=== PATIENT | female | born 1960 | race Caucasian/White ===

== ENCOUNTER 2017-03-12 18:50 | Emergency (ER) | payer SELFPAY ==
[~2017-03-12] VITALS: Ht 152.4 cm; Wt 69.0 kg
[2017-03-12 21:00] LABS: BASOPHILS % 0.9 % (0.0-2.0); EOSINOPHILS % 4.3 % (0.0-5.0); HEMATOCRIT. 28.8 % (36.0-48.0); HEMOGLOBIN. 9.3 g/dL (12.0-16.0); LYMPHOCYTES % 25.8 % (20.0-50.0); MEAN CORPUSCULAR HEMOGLOBIN 23.8 pg (28.0-32.0); MEAN CORPUSCULAR VOLUME 74.2 fL (81.0-99.0); MEAN PLATELET VOLUME 8.6 fl (7.4-10.4); MONOCYTES % 8.2 % (2.0-8.0); NEUTROPHILS % 60.8 % (40.0-76.0); PLATELET 232 x1000/uL (130-400); RED BLOOD CELL COUNT 3.88 mill/uL (4.2-5.4); RED CELL DISTRIBUTION WIDTH 13.3 % (11.6-14.6)
[2017-03-12 21:03] LABS: CHLORIDE 106 mEq/L (98-107)
[2017-03-12 21:05] LABS: PROTHROMBIN TIME 10.3 sec
[2017-03-12 21:09] LABS: CARBON DIOXIDE 26 mEq/L (21-32)
[2017-03-12 22:55] LABS: CLARITY URINE CLEAR (CLEAR); COLOR URINE YELLOW (YELLOW); GLUCOSE URINE NEGATIVE (NEGATIVE); KETONES URINE NEGATIVE (NEGATIVE); LEUKOCYTE ESTERASE URINE 3+ (NEGATIVE); NITRITE URINE NEGATIVE (NEGATIVE); OCCULT BLOOD URINE NEGATIVE (NEGATIVE); PROTEIN URINE NEGATIVE (NEGATIVE); SPECIFIC GRAVITY URINE 1.009 (1.005-1.030); UROBILINOGEN URINE 0.2 E.U./dL (0.2-1.0)
[2017-03-12] MEDS ORDERED: KETOROLAC 60MG/2ML VIAL IM ONE (23:30)
[2017-03-12] MEDS ORDERED: CEPHALEXIN 500MG CAPSULE PO ONE (23:30)
[2017-03-13 01:35] VITALS: BP 118/71
== END 2017-03-13 01:51 | disposition home or self-care (01) ==
LOC: ER 20:59
DX: N10 Acute pyelonephritis (principal)
CPT/HCPCS: 36415; 74176; 80053; 81001; 85025; 85610; 96372; 99285; J1885; J7030; Z7610

== ENCOUNTER 2018-01-20 15:28 | Emergency (ER) | payer MEDICAID ==
[~2018-01-20] VITALS: Ht 144.8 cm; Wt 69.4 kg
[2018-01-20 16:19] LABS: CLARITY URINE CLEAR (CLEAR); COLOR URINE YELLOW (YELLOW); KETONES URINE NEGATIVE (NEGATIVE); LEUKOCYTE ESTERASE URINE 2+ (NEGATIVE); NITRITE URINE NEGATIVE (NEGATIVE); OCCULT BLOOD URINE NEGATIVE (NEGATIVE); PROTEIN URINE NEGATIVE (NEGATIVE); SPECIFIC GRAVITY URINE 1.004 (1.005-1.030); UROBILINOGEN URINE 0.2 E.U./dL (0.2-1.0)
[2018-01-20 16:21] LABS: CHLORIDE 97 mEq/L (98-107)
[2018-01-20 16:24] LABS: PROTHROMBIN TIME 10.6 sec (9.4-11.6)
[2018-01-20 17:13] LABS: BASOPHILS % 0.5 % (0.0-2.0); EOSINOPHILS % 1.6 % (0.0-5.0); HEMATOCRIT. 30.5 % (36.0-48.0); HEMOGLOBIN. 9.9 g/dL (12.0-16.0); LYMPHOCYTES % 28.4 % (20.0-50.0); MEAN CORPUSCULAR HEMOGLOBIN 23.8 pg (28.0-32.0); MEAN CORPUSCULAR VOLUME 73.5 fL (81.0-99.0); MEAN PLATELET VOLUME 8.6 fl (7.4-10.4); MONOCYTES % 11.5 % (2.0-8.0); PLATELET 236 x1000/uL (130-400); RED BLOOD CELL COUNT 4.15 mill/uL (4.2-5.4); RED CELL DISTRIBUTION WIDTH 13.7 % (11.6-14.6)
[2018-01-20] MEDS ORDERED: MORPHINE SULFATE 4 MG/ML CPJ (NOT FOR IM USE) IV STA (17:40)
[2018-01-20] MEDS ORDERED: SODIUM CHLORIDE 0.9% 1,000 ML IV ONE (17:40)
[2018-01-20] MEDS ORDERED: ONDANSETRON HCL 4MG/2ML VIAL IV STA (17:40)
[2018-01-20] MEDS ORDERED: CEFTRIAXONE 1 G PREMIX 50 ML IV ONE (17:45)
[2018-01-20 20:46] VITALS: BP 135/69
== END 2018-01-20 20:47 | disposition home or self-care (01) ==
LOC: ER 15:56
DX: N39.0 Urinary tract infection, site not specified (principal); E87.1 Hypo-osmolality and hyponatremia; D64.9 Anemia, unspecified; I10 Essential (primary) hypertension; R73.03 Prediabetes; Z90.49 Acquired absence of other specified parts of digestive tract
CPT/HCPCS: 36415; 71045; 74176; 76705; 80053; 81003; 81025; 83690; 85025; 85610; 96361; 96365; 96375; 99285; J0696; J2270; J2405; J7030; Z7610

== ENCOUNTER 2018-04-11 16:00 | Emergency (ER) | payer MEDICAID ==
[~2018-04-11] VITALS: Ht 167.6 cm; Wt 68.0 kg
[2018-04-11 16:18] VITALS: BP 188/95
== END 2018-04-11 19:30 | disposition left against medical advice (07) ==
LOC: ER 16:00
DX: Z53.21 Procedure and treatment not carried out due to patient leaving prior to being seen by health care provider (principal)

== ENCOUNTER 2018-04-15 17:32 | Emergency (ER) | payer MEDICAID ==
[~2018-04-15] VITALS: Ht 157.5 cm; Wt 68.1 kg
[2018-04-15 19:21] LABS: CLARITY URINE CLEAR (CLEAR); COLOR URINE YELLOW (YELLOW); KETONES URINE NEGATIVE (NEGATIVE); LEUKOCYTE ESTERASE URINE 1+ (NEGATIVE); NITRITE URINE NEGATIVE (NEGATIVE); OCCULT BLOOD URINE NEGATIVE (NEGATIVE); PROTEIN URINE NEGATIVE (NEGATIVE); SPECIFIC GRAVITY URINE 1.006 (1.005-1.030); UROBILINOGEN URINE 0.2 E.U./dL (0.2-1.0)
[2018-04-15 19:30] LABS: EOSINOPHILS % 4.1 % (0.0-5.0); HEMATOCRIT. 32.9 % (36.0-48.0); HEMOGLOBIN. 10.5 g/dL (12.0-16.0); LYMPHOCYTES % 25.2 % (20.0-50.0); MEAN CORPUSCULAR HEMOGLOBIN 24.4 pg (28.0-32.0); MEAN CORPUSCULAR VOLUME 76.3 fL (81.0-99.0); MEAN PLATELET VOLUME 9.2 fl (7.4-10.4); MONOCYTES % 8.9 % (2.0-8.0); NEUTROPHILS % 60.8 % (40.0-76.0); PLATELET 279 x1000/uL (130-400); RED BLOOD CELL COUNT 4.31 mill/uL (4.2-5.4); RED CELL DISTRIBUTION WIDTH 13.7 % (11.6-14.6)
[2018-04-15 19:31] LABS: CHLORIDE 104 mEq/L (98-107)
[2018-04-15 20:35] LABS: PROTHROMBIN TIME 9.8 sec (9.1-11.1)
[2018-04-15] MEDS ORDERED: ACETAMINOPHEN 325MG TABLET PO ONE (23:15)
[2018-04-16 00:38] VITALS: BP 129/63
== END 2018-04-16 00:39 | disposition home or self-care (01) ==
LOC: ER 20:03
DX: N39.0 Urinary tract infection, site not specified (principal); I10 Essential (primary) hypertension; Z90.49 Acquired absence of other specified parts of digestive tract; Z90.710 Acquired absence of both cervix and uterus
CPT/HCPCS: 36415; 80053; 81003; 83690; 85025; 85610; 99284; Z7610

== ENCOUNTER 2018-04-19 23:40 | Emergency (ER) | payer MEDICAID ==
[~2018-04-19] VITALS: Ht 152.4 cm; Wt 59.0 kg
[2018-04-20] MEDS ORDERED: ONDANSETRON HCL 4MG/2ML INJ IV STA (03:14)
[2018-04-20] MEDS ORDERED: MORPHINE SULFATE 4 MG/ML CPJ (NOT FOR IM USE) IV STA (03:14)
[2018-04-20] MEDS ORDERED: SODIUM CHLORIDE 0.9% 1,000 ML IV ONE (03:14)
[2018-04-20 04:21] LABS: BASOPHILS % 1.5 % (0.0-2.0); EOSINOPHILS % 5.4 % (0.0-5.0); HEMATOCRIT. 32.5 % (36.0-48.0); HEMOGLOBIN. 10.3 g/dL (12.0-16.0); LYMPHOCYTES % 32.3 % (20.0-50.0); MEAN CORPUSCULAR HEMOGLOBIN 24.2 pg (28.0-32.0); MEAN CORPUSCULAR VOLUME 76.2 fL (81.0-99.0); MEAN PLATELET VOLUME 8.9 fl (7.4-10.4); MONOCYTES % 9.3 % (2.0-8.0); NEUTROPHILS % 51.5 % (40.0-76.0); PLATELET 255 x1000/uL (130-400); RED BLOOD CELL COUNT 4.26 mill/uL (4.2-5.4); RED CELL DISTRIBUTION WIDTH 13.3 % (11.6-14.6)
[2018-04-20 04:26] LABS: CHLORIDE 104 mEq/L (98-107)
[2018-04-20 04:33] LABS: CLARITY URINE CLEAR (CLEAR); COLOR URINE YELLOW (YELLOW); KETONES URINE NEGATIVE (NEGATIVE); LEUKOCYTE ESTERASE URINE TRACE (NEGATIVE); NITRITE URINE NEGATIVE (NEGATIVE); OCCULT BLOOD URINE NEGATIVE (NEGATIVE); PH URINE 6.5 (4.5-8.0); PROTEIN URINE NEGATIVE (NEGATIVE); SPECIFIC GRAVITY URINE 1.005 (1.005-1.030); UROBILINOGEN URINE 0.2 E.U./dL (0.2-1.0)
[2018-04-20] MEDS ORDERED: KETOROLAC 30MG/ML VIAL IV ONE (05:30)
[2018-04-20 08:38] VITALS: BP 159/86
== END 2018-04-20 08:41 | disposition home or self-care (01) ==
LOC: ER 23:40
DX: R10.84 Generalized abdominal pain (principal); R93.8 Abnormal findings on diagnostic imaging of other specified body structures; Z90.49 Acquired absence of other specified parts of digestive tract
CPT/HCPCS: 36415; 74176; 80053; 81003; 83605; 85025; 96374; 96375; 99285; J1885; J2270; J2405; J7030

== ENCOUNTER 2018-05-05 10:55 | Emergency (ER) | payer MEDICAID ==
[~2018-05-05] VITALS: Ht 157.5 cm; Wt 73.0 kg
[2018-05-05 12:03] LABS: CLARITY URINE CLEAR (CLEAR); COLOR URINE YELLOW (YELLOW); KETONES URINE NEGATIVE (NEGATIVE); LEUKOCYTE ESTERASE URINE TRACE (NEGATIVE); NITRITE URINE NEGATIVE (NEGATIVE); OCCULT BLOOD URINE NEGATIVE (NEGATIVE); PROTEIN URINE NEGATIVE (NEGATIVE); SPECIFIC GRAVITY URINE 1.005 (1.005-1.030); UROBILINOGEN URINE 0.2 E.U./dL (0.2-1.0)
[2018-05-05] MEDS ORDERED: ONDANSETRON HCL 4MG/2ML INJ IV STA (12:03)
[2018-05-05] MEDS ORDERED: MORPHINE SULFATE 4 MG/ML CPJ (NOT FOR IM USE) IV STA (12:03)
[2018-05-05 12:04] LABS: CHLORIDE 104 mEq/L (98-107)
[2018-05-05 12:05] LABS: BASOPHILS % 1.9 % (0.0-2.0); EOSINOPHILS % 4.1 % (0.0-5.0); HEMATOCRIT. 33.3 % (36.0-48.0); HEMOGLOBIN. 10.6 g/dL (12.0-16.0); MEAN CORPUSCULAR HEMOGLOBIN 24.1 pg (28.0-32.0); MEAN CORPUSCULAR VOLUME 75.9 fL (81.0-99.0); MEAN PLATELET VOLUME 9.6 fl (7.4-10.4); PLATELET 275 x1000/uL (130-400); RED BLOOD CELL COUNT 4.39 mill/uL (4.2-5.4); RED CELL DISTRIBUTION WIDTH 13.4 % (11.6-14.6)
[2018-05-05 13:25] VITALS: BP 131/73
== END 2018-05-05 13:37 | disposition home or self-care (01) ==
LOC: ER 10:55
DX: R10.13 Epigastric pain (principal); R03.0 Elevated blood-pressure reading, without diagnosis of hypertension; Z90.49 Acquired absence of other specified parts of digestive tract; Z90.710 Acquired absence of both cervix and uterus
CPT/HCPCS: 36415; 74176; 80053; 81003; 83690; 84484; 85025; 85610; 93005; 96374; 96375; 99285; J2270; J2405; J7030

== ENCOUNTER 2018-05-22 16:16 | Inpatient (IN) | payer MEDICAID, OTHER ==
[~2018-05-22] VITALS: Ht 165.1 cm; Wt 64.9 kg
[2018-05-22 17:07] LABS: BASOPHILS % 1.1 % (0.0-2.0); EOSINOPHILS % 5.2 % (0.0-5.0); HEMATOCRIT. 29.6 % (36.0-48.0); HEMOGLOBIN. 9.5 g/dL (12.0-16.0); LYMPHOCYTES % 27.3 % (20.0-50.0); MEAN CORPUSCULAR HEMOGLOBIN 24.3 pg (28.0-32.0); MEAN PLATELET VOLUME 8.8 fl (7.4-10.4); MONOCYTES % 9.4 % (2.0-8.0); PLATELET 241 x1000/uL (130-400); RED BLOOD CELL COUNT 3.89 mill/uL (4.2-5.4); RED CELL DISTRIBUTION WIDTH 13.4 % (11.6-14.6)
[2018-05-22 17:16] LABS: CHLORIDE 101 mEq/L (98-107)
[2018-05-22 17:21] LABS: ETHANOL BLOOD < 10 mg/dL; LDL CHOLESTEROL 119 mg/dL (5-100)
[2018-05-22 17:22] LABS: CREATINE KINASE 98 IU/L (26-192)
[2018-05-22] MEDS ORDERED: MAGNESIUM 2 G PREMIX 50 ML IV ONE (17:30)
[2018-05-22] MEDS ORDERED: IOHEXOL-350 100 ML BOTTLE ONE (17:49)
[2018-05-22] MEDS ORDERED: ASPIRIN 81MG TABLET PO ONE (18:00)
[2018-05-22] MEDS: SODIUM CHLORIDE 0.45% 1,000 ML IV SCH (21:12)
[2018-05-22] MEDS ORDERED: HYDROMORPHONE HCL/PF 2MG/ML CPJ IV PRN (21:15)
[2018-05-22] MEDS ORDERED: MAGNESIUM/ALUMINUM HYDROXIDE/SIMETHICONE 30ML UDC PO PRN (21:15)
[2018-05-22] MEDS ORDERED: ONDANSETRON HCL 4MG/2ML INJ IV PRN (21:15)
[2018-05-22] MEDS ORDERED: HYDROCODONE/ACETAMINOPHEN 5/325MG TABLET PO PRN (21:15)
[2018-05-22] MEDS ORDERED: GUAIFENESIN 200MG/10ML SUGAR FREE UDC PO PRN (21:15)
[2018-05-22] MEDS ORDERED: LORAZEPAM 2MG/ML CPJ IV PRN (21:15)
[2018-05-22] MEDS ORDERED: CLONIDINE 0.1MG TABLET PO PRN (21:15)
[2018-05-22] MEDS ORDERED: IPRATROPIUM/ALBUTEROL 0.5-3(2.5)MG/3ML NEB INH PRN (21:15)
[2018-05-22] MEDS ORDERED: ACETAMINOPHEN 325MG TABLET PO PRN (21:15)
[2018-05-22] MEDS ORDERED: DIPHENHYDRAMINE 50MG/ML VIAL IV PRN (21:15)
[2018-05-22] MEDS ORDERED: DOCUSATE SODIUM 100MG CAPSULE PO PRN (21:15)
[2018-05-22] MEDS ORDERED: NA PHOS,M-B/NA PHOS,DI-BA ENEMA 118ML PR PRN (21:15)
[2018-05-23 04:00] VITALS: BP 99/60
[2018-05-23] MEDS ORDERED: HYDROMORPHONE HCL/PF 2MG/ML CPJ IV PRN (04:00)
[2018-05-23 08:00] VITALS: BP 146/68
[2018-05-23] MEDS ORDERED: ENOXAPARIN 40MG/0.4ML SYR SUBCUT SCH (09:00)
[2018-05-23] MEDS ORDERED: ASPIRIN 81MG EC TABLET PO SCH (09:00)
[2018-05-23] MEDS: ASPIRIN 81MG EC TABLET PO SCH (09:48)
[2018-05-23] MEDS: ENOXAPARIN 40MG/0.4ML SYR SUBCUT SCH (09:51)
[2018-05-23 12:00] VITALS: BP 156/76
[2018-05-23 16:00] VITALS: BP 149/72
[2018-05-23] MEDS: SODIUM CHLORIDE 0.45% 1,000 ML IV SCH (17:12)
[2018-05-23 18:15] LABS: CREATINE KINASE 80 IU/L (26-192); CREATINE KINASE MB FRACTION < 1.0 ng/mL (0.5-3.6)
[2018-05-23 18:20] LABS: T4 FREE 1.09 ng/dL (0.76-1.46)
[2018-05-23 20:00] VITALS: BP 162/85
[2018-05-24 00:40] VITALS: BP 132/76
[2018-05-24 01:02] LABS: CREATINE KINASE 64 IU/L (26-192); CREATINE KINASE MB FRACTION < 1.0 ng/mL (0.5-3.6)
[2018-05-24 04:00] VITALS: BP 143/79
[2018-05-24 07:26] LABS: CREATINE KINASE 60 IU/L (26-192); CREATINE KINASE MB FRACTION < 1.0 ng/mL (0.5-3.6)
[2018-05-24 08:00] VITALS: BP 140/70
[2018-05-24 08:30] VITALS: BP 140/70
[2018-05-24] MEDS: ENOXAPARIN 40MG/0.4ML SYR SUBCUT SCH (10:11)
[2018-05-24] MEDS: ASPIRIN 81MG EC TABLET PO SCH (10:12)
== END 2018-05-24 12:24 | disposition home or self-care (01) | DRG 52 ==
LOC: ER 16:16 → 7WST 17:53 → UNDOADMIN 05-23 00:27 → 7WST 05-23 00:27 → ENRESERV 05-23 02:43 → ER 05-23 03:56
PROVIDERS: ADMIT Internal Medicine; ATTEND Internal Medicine
DX: G93.41 Metabolic encephalopathy (principal); N17.0 Acute kidney failure with tubular necrosis; E86.0 Dehydration; G45.9 Transient cerebral ischemic attack, unspecified; D64.9 Anemia, unspecified; I10 Essential (primary) hypertension; R20.2 Paresthesia of skin; E78.5 Hyperlipidemia, unspecified; Z90.710 Acquired absence of both cervix and uterus; Z90.49 Acquired absence of other specified parts of digestive tract; Z91.19 Patient's noncompliance with other medical treatment and regimen
CPT/HCPCS: 36415; 70496; 71045; 80061; 82550; 82553; 82962; 83036; 83721; 83735; 83880; 84439; 84443; 84484; 85379; 93005; 93306; 93880; 96365; 99285; G0482; J1170; J1650; J2405; J3475; J7030; Q9967

== ENCOUNTER 2018-08-20 10:49 | Inpatient (IN) | payer MEDICAID, OTHER ==
[~2018-08-20] VITALS: Ht 152.4 cm; Wt 68.0 kg
[2018-08-20] MEDS ORDERED: ONDANSETRON HCL 4MG/2ML INJ IV STA (12:45)
[2018-08-20] MEDS ORDERED: KETOROLAC 30MG/ML VIAL IV STA (12:45)
[2018-08-20 13:15] LABS: CLARITY URINE CLEAR (CLEAR); COLOR URINE YELLOW (YELLOW); KETONES URINE NEGATIVE (NEGATIVE); LEUKOCYTE ESTERASE URINE TRACE (NEGATIVE); NITRITE URINE NEGATIVE (NEGATIVE); OCCULT BLOOD URINE NEGATIVE (NEGATIVE); PROTEIN URINE NEGATIVE (NEGATIVE); SPECIFIC GRAVITY URINE 1.009 (1.005-1.030); UROBILINOGEN URINE 0.2 E.U./dL (0.2-1.0)
[2018-08-20 15:01] LABS: BASOPHILS % 1.1 % (0.0-2.0); EOSINOPHILS % 3.5 % (0.0-5.0); HEMATOCRIT. 34.2 % (36.0-48.0); HEMOGLOBIN. 10.9 g/dL (12.0-16.0); LYMPHOCYTES % 27.1 % (20.0-50.0); MEAN CORPUSCULAR HEMOGLOBIN 24.1 pg (28.0-32.0); MEAN CORPUSCULAR VOLUME 75.6 fL (81.0-99.0); MONOCYTES % 7.1 % (2.0-8.0); NEUTROPHILS % 61.2 % (40.0-76.0); PLATELET 283 x1000/uL (130-400); RED BLOOD CELL COUNT 4.52 mill/uL (4.2-5.4); RED CELL DISTRIBUTION WIDTH 13.3 % (11.6-14.6)
[2018-08-20 15:06] LABS: CHLORIDE 106 mEq/L (98-107)
[2018-08-20] MEDS ORDERED: CEFTRIAXONE 1 G PREMIX 50 ML IV ONE (15:45)
[2018-08-20] MEDS ORDERED: MORPHINE SULFATE 4 MG/ML CPJ (NOT FOR IM USE) IV ONE (15:45)
[2018-08-20 21:00] VITALS: BP 163/69
[2018-08-20 21:05] VITALS: BP 163/69
[2018-08-20] MEDS ORDERED: ENOXAPARIN 40MG/0.4ML SYR SUBCUT SCH (23:30)
[2018-08-20] MEDS ORDERED: ONDANSETRON HCL 4MG/2ML INJ IV PRN (23:30)
[2018-08-20] MEDS ORDERED: HYDROCODONE/ACETAMINOPHEN 5/325MG TABLET PO PRN (23:30)
[2018-08-20] MEDS ORDERED: DOCUSATE SODIUM 100MG CAPSULE PO PRN (23:30)
[2018-08-20] MEDS ORDERED: GUAIFENESIN 200MG/10ML SUGAR FREE UDC PO PRN (23:30)
[2018-08-21] VITALS: BP 112/59
[2018-08-21 04:00] VITALS: BP 120/60
[2018-08-21] MEDS: SODIUM CHLORIDE 0.9% 1,000 ML IV SCH ×2 (07:29)
[2018-08-21 07:33] LABS: BASOPHILS % 1.3 % (0.0-2.0); EOSINOPHILS % 8.4 % (0.0-5.0); HEMATOCRIT. 33.4 % (36.0-48.0); HEMOGLOBIN. 10.5 g/dL (12.0-16.0); LYMPHOCYTES % 19.5 % (20.0-50.0); MEAN CORPUSCULAR HEMOGLOBIN 24.2 pg (28.0-32.0); MEAN PLATELET VOLUME 9.2 fl (7.4-10.4); MONOCYTES % 10.5 % (2.0-8.0); NEUTROPHILS % 60.3 % (40.0-76.0); PLATELET 257 x1000/uL (130-400); RED BLOOD CELL COUNT 4.34 mill/uL (4.2-5.4); RED CELL DISTRIBUTION WIDTH 13.3 % (11.6-14.6)
[2018-08-21 07:59] LABS: CHLORIDE 110 mEq/L (98-107)
[2018-08-21 08:00] VITALS: BP 116/60
[2018-08-21 08:07] LABS: LDL CHOLESTEROL 161 mg/dL (5-100)
[2018-08-21 08:08] LABS: HDL CHOLESTEROL 38 mg/dL (40-59)
[2018-08-21 12:00] VITALS: BP 105/62
[2018-08-21] MEDS ORDERED: ATOR10TA MT (12:26)
[2018-08-21 12:56] VITALS: BP 116/60
[2018-08-21 14:25] LABS: *AMPHETAMINES SCREEN URINE NEGATIVE (NEGATIVE)
[2018-08-21 14:26] LABS: *BARBITURATES SCREEN URINE NEGATIVE (NEGATIVE); *BENZODIAZEPINES SCREEN URINE NEGATIVE (NEGATIVE); *COCAINE SCREEN URINE NEGATIVE (NEGATIVE); CANNABINOID URINE SCREEN NEGATIVE (NEGATIVE); METHADONE URINE SCREEN NEGATIVE (NEGATIVE); OPIATES URINE SCREEN NEGATIVE (NEGATIVE); PHENCYCLIDINE URINE SCREEN NEGATIVE (NEGATIVE)
[2018-08-21 15:45] LABS: CLARITY URINE CLEAR (CLEAR); COLOR URINE YELLOW (YELLOW); KETONES URINE NEGATIVE (NEGATIVE); LEUKOCYTE ESTERASE URINE TRACE (NEGATIVE); NITRITE URINE NEGATIVE (NEGATIVE); OCCULT BLOOD URINE NEGATIVE (NEGATIVE); PROTEIN URINE NEGATIVE (NEGATIVE); SPECIFIC GRAVITY URINE 1.013 (1.005-1.030); UROBILINOGEN URINE 0.2 E.U./dL (0.2-1.0)
[2018-08-21] MEDS ORDERED: ATORVASTATIN CALCIUM 10MG TABLET PO SCH (21:00)
== END 2018-08-21 14:05 | disposition home or self-care (01) | DRG 463 ==
LOC: ER 14:16 → 5WST 15:42 → EDBEDREQ 15:44 → ENRESERV 20:28
PROVIDERS: ADMIT Family Medicine; ATTEND Family Medicine
DX: N39.0 Urinary tract infection, site not specified (principal); K85.90 Acute pancreatitis without necrosis or infection, unspecified; Z90.49 Acquired absence of other specified parts of digestive tract; E86.0 Dehydration; Z79.899 Other long term (current) drug therapy
CPT/HCPCS: 36415; 76705; 80061; 80305; 96365; 96375; 99285; J0696; J1650; J1885; J2270; J2405; J7030

== ENCOUNTER 2018-09-13 23:45 | Inpatient (IN) | payer MEDICAID, OTHER ==
[~2018-09-13] VITALS: Ht 142.2 cm; Wt 64.4 kg
[~2018-09-13 23:45] MED LIST: ATOR10TA MT
[2018-09-14] MEDS ORDERED: SODIUM CHLORIDE 0.9% 1,000 ML IV ONE (01:18)
[2018-09-14] MEDS ORDERED: KETOROLAC 30MG/ML VIAL IV STA (01:18)
[2018-09-14 01:31] LABS: CHLORIDE 103 mEq/L (98-107)
[2018-09-14 01:36] LABS: BASOPHILS % 1.4 % (0.0-2.0); EOSINOPHILS % 4.2 % (0.0-5.0); HEMATOCRIT. 34.3 % (36.0-48.0); HEMOGLOBIN. 10.8 g/dL (12.0-16.0); LYMPHOCYTES % 19.2 % (20.0-50.0); MEAN PLATELET VOLUME 9.2 fl (7.4-10.4); MONOCYTES % 13.2 % (2.0-8.0); PLATELET 240 x1000/uL (130-400); RED BLOOD CELL COUNT 4.51 mill/uL (4.2-5.4); RED CELL DISTRIBUTION WIDTH 13.5 % (11.6-14.6)
[2018-09-14] MEDS ORDERED: MORPHINE SULFATE 4 MG/ML CPJ (NOT FOR IM USE) IV ONE (02:15)
[2018-09-14] MEDS ORDERED: DEXTROSE 50% WATER 50ML SYRINGE IV PRN (11:00)
[2018-09-14] MEDS ORDERED: ONDANSETRON HCL 4MG/2ML INJ IV PRN (11:00)
[2018-09-14] MEDS ORDERED: MAGNESIUM/ALUMINUM HYDROXIDE/SIMETHICONE 30ML UDC PO PRN (11:00)
[2018-09-14] MEDS ORDERED: CLONIDINE 0.1MG TABLET PO PRN (11:00)
[2018-09-14] MEDS: KETOROLAC 30MG/ML VIAL IV PRN ×3 (13:40→21:24)
[2018-09-14] MEDS ORDERED: SODIUM CHLORIDE 0.9% INJ 3ML FLUSH IVF SCH (14:00)
[2018-09-14] MEDS ORDERED: ASPIRIN 81MG EC TABLET PO NR (15:15)
[2018-09-14] MEDS: ACETAMINOPHEN 325MG TABLET PO PRN (17:27)
[2018-09-14] MEDS: INSULIN LISPRO 100 UNITS/ML SUBCUT SCH (21:00)
[2018-09-14] MEDS: BLOOD SUGAR DIAGNOSTIC STRIP TEST SCH (21:00)
[2018-09-14] MEDS ORDERED: AMLODIPINE 5MG TABLET PO SCH (21:32)
[2018-09-14 21:49] VITALS: BP 156/76
[2018-09-14 21:54] VITALS: BP 156/76
[2018-09-14] MEDS ORDERED: SIMV20TA6 PO (22:08)
[2018-09-15] VITALS: BP 142/85
[2018-09-15] MEDS: ACETAMINOPHEN 325MG TABLET PO PRN ×2 (01:32→11:12)
[2018-09-15] MEDS: KETOROLAC 30MG/ML VIAL IV PRN ×2 (03:34→09:35)
[2018-09-15 04:00] VITALS: BP 147/87
[2018-09-15 06:47] LABS: BASOPHILS % 0.8 % (0.0-2.0); EOSINOPHILS % 3.6 % (0.0-5.0); HEMATOCRIT. 33.6 % (36.0-48.0); HEMOGLOBIN. 10.7 g/dL (12.0-16.0); LYMPHOCYTES % 17.1 % (20.0-50.0); MEAN CORPUSCULAR VOLUME 75.5 fL (81.0-99.0); MEAN PLATELET VOLUME 8.4 fl (7.4-10.4); MONOCYTES % 11.8 % (2.0-8.0); NEUTROPHILS % 66.7 % (40.0-76.0); PLATELET 197 x1000/uL (130-400); RED BLOOD CELL COUNT 4.45 mill/uL (4.2-5.4); RED CELL DISTRIBUTION WIDTH 13.1 % (11.6-14.6)
[2018-09-15 07:10] LABS: CHLORIDE 108 mEq/L (98-107)
[2018-09-15 07:17] LABS: LDL CHOLESTEROL 103 mg/dL (5-100)
[2018-09-15 07:19] LABS: HDL CHOLESTEROL 42 mg/dL (40-59)
[2018-09-15] MEDS: BLOOD SUGAR DIAGNOSTIC STRIP TEST SCH ×2 (07:43→13:18)
[2018-09-15] MEDS: INSULIN LISPRO 100 UNITS/ML SUBCUT SCH ×2 (07:43→13:10)
[2018-09-15 08:00] VITALS: BP 150/86
[2018-09-15] MEDS ORDERED: AMLODIPINE 5MG TABLET PO SCH (09:00)
[2018-09-15] MEDS ORDERED: ASPIRIN 81MG EC TABLET PO SCH (13:00)
[2018-09-15 14:30] VITALS: BP 137/74
[2018-09-15] MEDS ORDERED: ATORVASTATIN CALCIUM 10MG TABLET PO SCH (21:00)
== END 2018-09-15 16:20 | disposition home or self-care (01) | DRG 203 ==
LOC: ER 23:45 → 7WST 09-14 05:29 → EDBEDREQ 09-14 05:35 → ENRESERV 09-14 21:04
PROVIDERS: ADMIT Internal Medicine; ATTEND Internal Medicine
DX: M94.0 Chondrocostal junction syndrome [Tietze] (principal); E11.22 Type 2 diabetes mellitus with diabetic chronic kidney disease; I13.10 Hypertensive heart and chronic kidney disease without heart failure, with stage 1 through stage 4 chronic kidney disease, or unspecified chronic kidney disease; E78.00 Pure hypercholesterolemia, unspecified; N18.9 Chronic kidney disease, unspecified; Z90.49 Acquired absence of other specified parts of digestive tract
CPT/HCPCS: 36415; 71045; 78582; 80048; 80061; 82962; 83880; 84484; 85379; 93005; 93306; 96361; 96374; 96375; 96376; 99285; A9558; J1885; J2270; J7030

== ENCOUNTER 2018-09-26 16:16 | Inpatient (IN) | payer MEDICAID, OTHER ==
[~2018-09-26] VITALS: Ht 162.6 cm; Wt 59.0 kg
[~2018-09-26 16:16] MED LIST changes: +SIMV20TA6 PO
[2018-09-27 01:25] VITALS: BP 157/84
[2018-09-27] MEDS ORDERED: SODIUM CHLORIDE 0.9% 1,000 ML IV ONE (01:42)
[2018-09-27] MEDS ORDERED: ONDANSETRON HCL 4MG/2ML INJ IV STA (01:42)
[2018-09-27] MEDS ORDERED: MORPHINE SULFATE 4 MG/ML CPJ (NOT FOR IM USE) IV STA (01:42)
[2018-09-27 02:18] LABS: BASOPHILS % 1.1 % (0.0-2.0); EOSINOPHILS % 3.5 % (0.0-5.0); HEMATOCRIT. 34.8 % (36.0-48.0); LYMPHOCYTES % 30.5 % (20.0-50.0); MEAN CORPUSCULAR HEMOGLOBIN 23.8 pg (28.0-32.0); MEAN CORPUSCULAR VOLUME 75.6 fL (81.0-99.0); MEAN PLATELET VOLUME 8.5 fl (7.4-10.4); MONOCYTES % 10.8 % (2.0-8.0); NEUTROPHILS % 54.1 % (40.0-76.0); PLATELET 303 x1000/uL (130-400); RED BLOOD CELL COUNT 4.61 mill/uL (4.2-5.4); RED CELL DISTRIBUTION WIDTH 13.2 % (11.6-14.6)
[2018-09-27 02:24] LABS: CHLORIDE 103 mEq/L (98-107)
[2018-09-27 06:29] LABS: CLARITY URINE CLEAR (CLEAR); COLOR URINE YELLOW (YELLOW); KETONES URINE NEGATIVE (NEGATIVE); LEUKOCYTE ESTERASE URINE 3+ (NEGATIVE); NITRITE URINE NEGATIVE (NEGATIVE); OCCULT BLOOD URINE NEGATIVE (NEGATIVE); PROTEIN URINE NEGATIVE (NEGATIVE); SPECIFIC GRAVITY URINE 1.005 (1.005-1.030); UROBILINOGEN URINE 0.2 E.U./dL (0.2-1.0)
[2018-09-27] MEDS ORDERED: DIPHENHYDRAMINE 50MG/ML VIAL IV PRN (07:00)
[2018-09-27] MEDS ORDERED: MAGNESIUM/ALUMINUM HYDROXIDE/SIMETHICONE 30ML UDC PO PRN (07:00)
[2018-09-27] MEDS ORDERED: GUAIFENESIN 200MG/10ML SUGAR FREE UDC PO PRN (07:00)
[2018-09-27] MEDS ORDERED: CLONIDINE 0.1MG TABLET PO PRN (07:00)
[2018-09-27] MEDS ORDERED: IPRATROPIUM/ALBUTEROL 0.5-3(2.5)MG/3ML NEB INH PRN (07:00)
[2018-09-27] MEDS ORDERED: ONDANSETRON HCL 4MG/2ML INJ IV PRN (07:00)
[2018-09-27] MEDS ORDERED: LORAZEPAM 2MG/ML CPJ IV PRN (07:00)
[2018-09-27] MEDS ORDERED: ACETAMINOPHEN 325MG TABLET PO PRN (07:00)
[2018-09-27] MEDS ORDERED: DOCUSATE SODIUM 100MG CAPSULE PO PRN (07:00)
[2018-09-27 09:00] VITALS: BP 157/84
[2018-09-27] MEDS: HYDROCODONE/ACETAMINOPHEN 10/325MG TABLET PO PRN ×2 (10:37→23:28)
[2018-09-27] MEDS: ASPIRIN 81MG EC TABLET PO SCH (11:17)
[2018-09-27] MEDS: ENOXAPARIN 40MG/0.4ML SYR SUBCUT SCH (11:17)
[2018-09-27] MEDS ORDERED: ENAL20TA MT (11:28)
[2018-09-27 12:00] VITALS: BP 130/68
[2018-09-27] MEDS: SODIUM CHLORIDE 0.9% INJ 3ML FLUSH IVF SCH ×2 (14:50→20:57)
[2018-09-27] MEDS: SODIUM CHLORIDE 0.45% 1,000 ML IV SCH ×2 (14:53→23:26)
[2018-09-27] MEDS: HYDROMORPHONE HCL/PF 2MG/ML CPJ IV PRN ×2 (15:47→20:57)
[2018-09-27 16:00] VITALS: BP 149/85
[2018-09-27 20:00] VITALS: BP 147/86
[2018-09-28] VITALS: BP 166/97
[2018-09-28 04:00] VITALS: BP 156/89
[2018-09-28] MEDS: SODIUM CHLORIDE 0.45% 1,000 ML IV SCH ×2 (06:02→14:15)
[2018-09-28] MEDS: SODIUM CHLORIDE 0.9% INJ 3ML FLUSH IVF SCH ×2 (06:03→14:00)
[2018-09-28 07:01] LABS: EOSINOPHILS % 1.9 % (0.0-5.0); HEMOGLOBIN. 10.8 g/dL (12.0-16.0); LYMPHOCYTES % 21.2 % (20.0-50.0); MEAN CORPUSCULAR HEMOGLOBIN 24.1 pg (28.0-32.0); MEAN CORPUSCULAR VOLUME 76.2 fL (81.0-99.0); MEAN PLATELET VOLUME 8.7 fl (7.4-10.4); MONOCYTES % 8.3 % (2.0-8.0); NEUTROPHILS % 67.6 % (40.0-76.0); PLATELET 314 x1000/uL (130-400); RED BLOOD CELL COUNT 4.47 mill/uL (4.2-5.4)
[2018-09-28 07:14] LABS: CHLORIDE 101 mEq/L (98-107)
[2018-09-28 07:25] LABS: LDL CHOLESTEROL 98 mg/dL (5-100)
[2018-09-28 07:26] LABS: HDL CHOLESTEROL 44 mg/dL (40-59)
[2018-09-28 08:00] VITALS: BP 116/65
[2018-09-28] MEDS: ASPIRIN 81MG EC TABLET PO SCH (08:32)
[2018-09-28] MEDS: ENOXAPARIN 40MG/0.4ML SYR SUBCUT SCH (08:34)
[2018-09-28 12:00] VITALS: BP 127/77
[2018-09-28 13:18] VITALS: BP 122/77
== END 2018-09-28 14:48 | disposition home or self-care (01) | DRG 282 ==
LOC: ER 16:16 → 6EST 09-27 03:04 → EDBEDREQ 09-27 03:05 → EDBEDREQTM 09-27 03:05 → EDBEDREQSVC 09-27 03:05 → ENRESERV 09-27 07:09 → 6EST 09-27 09:21
PROVIDERS: ADMIT Internal Medicine; ATTEND Internal Medicine
DX: K85.90 Acute pancreatitis without necrosis or infection, unspecified (principal); N17.9 Acute kidney failure, unspecified; I12.9 Hypertensive chronic kidney disease with stage 1 through stage 4 chronic kidney disease, or unspecified chronic kidney disease; R07.89 Other chest pain; N18.9 Chronic kidney disease, unspecified; Z90.49 Acquired absence of other specified parts of digestive tract; Z90.710 Acquired absence of both cervix and uterus
CPT/HCPCS: 36415; 71045; 73030; 74176; 80061; 83605; 84484; 93005; 96361; 96374; 96375; 99285; J1170; J1650; J2270; J2405; J7030

== ENCOUNTER 2018-10-28 18:16 | Emergency (ER) | payer MEDICAID ==
[~2018-10-28] VITALS: Ht 152.4 cm; Wt 59.0 kg
[~2018-10-28 18:16] MED LIST changes: +ENAL20TA MT; -SIMV20TA6 PO
[2018-10-29] MEDS ORDERED: HYDROCODONE/ACETAMINOPHEN 5/325MG TABLET PO STA ×2 (02:03→07:08)
[2018-10-29] MEDS ORDERED: ONDANSETRON HCL 4MG/2ML INJ IV STA (02:51)
[2018-10-29 03:10] LABS: BASOPHILS % 0.9 % (0.0-2.0); EOSINOPHILS % 3.8 % (0.0-5.0); HEMATOCRIT. 32.5 % (36.0-48.0); HEMOGLOBIN. 10.5 g/dL (12.0-16.0); LYMPHOCYTES % 29.6 % (20.0-50.0); MEAN CORPUSCULAR HEMOGLOBIN 24.1 pg (28.0-32.0); MEAN PLATELET VOLUME 8.6 fl (7.4-10.4); NEUTROPHILS % 56.7 % (40.0-76.0); PLATELET 273 x1000/uL (130-400); RED BLOOD CELL COUNT 4.34 mill/uL (4.2-5.4); RED CELL DISTRIBUTION WIDTH 13.4 % (11.6-14.6)
[2018-10-29 03:18] LABS: CHLORIDE 104 mEq/L (98-107)
[2018-10-29 03:19] LABS: PROTHROMBIN TIME 10.1 sec (9.1-11.1)
[2018-10-29 07:36] LABS: CLARITY URINE CLEAR (CLEAR); COLOR URINE YELLOW (YELLOW); KETONES URINE NEGATIVE (NEGATIVE); LEUKOCYTE ESTERASE URINE 1+ (NEGATIVE); NITRITE URINE NEGATIVE (NEGATIVE); OCCULT BLOOD URINE NEGATIVE (NEGATIVE); PROTEIN URINE NEGATIVE (NEGATIVE); UROBILINOGEN URINE 0.2 E.U./dL (0.2-1.0)
[2018-10-29 08:48] VITALS: BP 103/63
== END 2018-10-29 08:50 | disposition home or self-care (01) ==
LOC: ER 18:16
DX: N39.0 Urinary tract infection, site not specified (principal); M54.5 Low back pain; I12.9 Hypertensive chronic kidney disease with stage 1 through stage 4 chronic kidney disease, or unspecified chronic kidney disease; N18.9 Chronic kidney disease, unspecified; Z90.49 Acquired absence of other specified parts of digestive tract; E78.00 Pure hypercholesterolemia, unspecified; Z90.710 Acquired absence of both cervix and uterus
CPT/HCPCS: 36415; 81025; 99283

== ENCOUNTER 2019-01-01 07:46 | Emergency (ER) | payer MEDICAID ==
[~2019-01-01] VITALS: Ht 142.2 cm; Wt 63.6 kg
[2019-01-01] MEDS ORDERED: KETOROLAC 30MG/ML VIAL IV STA (09:17)
[2019-01-01] MEDS ORDERED: SODIUM CHLORIDE 0.9% 1,000 ML IV ONE (09:17)
[2019-01-01 09:34] LABS: CLARITY URINE CLEAR (CLEAR); COLOR URINE YELLOW (YELLOW); KETONES URINE NEGATIVE (NEGATIVE); LEUKOCYTE ESTERASE URINE TRACE (NEGATIVE); NITRITE URINE NEGATIVE (NEGATIVE); OCCULT BLOOD URINE NEGATIVE (NEGATIVE); PROTEIN URINE NEGATIVE (NEGATIVE); SPECIFIC GRAVITY URINE 1.008 (1.005-1.030); UROBILINOGEN URINE 0.2 E.U./dL (0.2-1.0)
[2019-01-01 09:36] LABS: CHLORIDE 109 mEq/L (98-107)
[2019-01-01 09:38] LABS: INR 0.9; PROTHROMBIN TIME 9.7 sec (9.6-11.0)
[2019-01-01 09:40] LABS: BASOPHILS % 0.9 % (0.0-2.0); EOSINOPHILS % 1.8 % (0.0-5.0); HEMATOCRIT. 32.3 % (36.0-48.0); HEMOGLOBIN. 10.3 g/dL (12.0-16.0); LYMPHOCYTES % 19.1 % (20.0-50.0); MEAN CORPUSCULAR HEMOGLOBIN 24.4 pg (28.0-32.0); MEAN CORPUSCULAR VOLUME 76.2 fL (81.0-99.0); MONOCYTES % 8.6 % (2.0-8.0); NEUTROPHILS % 69.6 % (40.0-76.0); PLATELET 265 x1000/uL (130-400); RED BLOOD CELL COUNT 4.24 mill/uL (4.2-5.4)
[2019-01-01] MEDS ORDERED: CEFTRIAXONE 1 G PREMIX 50 ML IV ONE (11:45)
[2019-01-01] MEDS ORDERED: ONDANSETRON HCL 4MG/2ML INJ IV ONE (12:30)
[2019-01-01] MEDS ORDERED: MORPHINE SULFATE 4 MG/ML CPJ (NOT FOR IM USE) IV ONE (12:30)
[2019-01-01 13:49] VITALS: BP 115/67
== END 2019-01-01 13:54 | disposition home or self-care (01) ==
LOC: ER 07:46
DX: N39.0 Urinary tract infection, site not specified (principal); E86.0 Dehydration; E78.5 Hyperlipidemia, unspecified; E78.00 Pure hypercholesterolemia, unspecified; I10 Essential (primary) hypertension; Z90.49 Acquired absence of other specified parts of digestive tract; Z98.890 Other specified postprocedural states; Z79.899 Other long term (current) drug therapy
CPT/HCPCS: 36415; 74176; 80053; 81003; 83690; 85025; 85610; 87086; 96361; 96365; 96366; 96375; 99284; J0696; J1885; J2405; J7030

== ENCOUNTER 2019-02-13 17:18 | Emergency (ER) | payer MEDICAID ==
[~2019-02-13] VITALS: Ht 152.4 cm; Wt 64.0 kg
[2019-02-13 18:00] VITALS: BP 151/91
== END 2019-02-13 21:43 | disposition left against medical advice (07) ==
LOC: ER 17:18
DX: Z53.21 Procedure and treatment not carried out due to patient leaving prior to being seen by health care provider (principal)

== ENCOUNTER 2019-04-17 17:03 | Emergency (ER) | payer MEDICAID ==
[~2019-04-17] VITALS: Ht 147.3 cm; Wt 64.0 kg
[2019-04-17 17:58] VITALS: BP 150/87
== END 2019-04-17 22:05 | disposition left against medical advice (07) ==
LOC: ER 17:03
DX: Z53.21 Procedure and treatment not carried out due to patient leaving prior to being seen by health care provider (principal)
CPT/HCPCS: 82962

== ENCOUNTER 2019-08-11 16:20 | Emergency (ER) | payer MEDICAID ==
[~2019-08-11] VITALS: Ht 134.6 cm; Wt 74.0 kg
[2019-08-12] MEDS ORDERED: MORPHINE SULFATE 4 MG/ML CPJ (NOT FOR IM USE) IV STA (02:59)
[2019-08-12] MEDS ORDERED: ONDANSETRON HCL 4MG/2ML INJ IV STA (02:59)
[2019-08-12] MEDS ORDERED: SODIUM CHLORIDE 0.9% 1,000 ML IV ONE ×2 (02:59→06:30)
[2019-08-12 03:24] LABS: BASOPHILS % 0.8 % (0.0-2.0); EOSINOPHILS % 2.6 % (0.0-5.0); HEMOGLOBIN. 10.5 g/dL (12.0-16.0); LYMPHOCYTES % 25.9 % (20.0-50.0); MEAN CORPUSCULAR HEMOGLOBIN 24.2 pg (28.0-32.0); MEAN CORPUSCULAR VOLUME 76.4 fL (81.0-99.0); MEAN PLATELET VOLUME 9.2 fl (7.4-10.4); MONOCYTES % 10.6 % (2.0-8.0); NEUTROPHILS % 60.1 % (40.0-76.0); PLATELET 308 x1000/uL (130-400); RED BLOOD CELL COUNT 4.33 mill/uL (4.2-5.4); RED CELL DISTRIBUTION WIDTH 13.7 % (11.6-14.6)
[2019-08-12 03:30] LABS: CHLORIDE 101 mEq/L (98-107)
[2019-08-12 03:31] LABS: INR 0.9; PROTHROMBIN TIME 9.7 sec (9.6-11.0)
[2019-08-12 03:34] LABS: CLARITY URINE CLEAR (CLEAR); COLOR URINE YELLOW (YELLOW); KETONES URINE NEGATIVE (NEGATIVE); LEUKOCYTE ESTERASE URINE 3+ (NEGATIVE); NITRITE URINE NEGATIVE (NEGATIVE); OCCULT BLOOD URINE NEGATIVE (NEGATIVE); PH URINE 6.5 (4.5-8.0); PROTEIN URINE TRACE (NEGATIVE); SPECIFIC GRAVITY URINE 1.005 (1.005-1.030); UROBILINOGEN URINE 0.2 E.U./dL (0.2-1.0)
[2019-08-12] MEDS ORDERED: MORPHINE SULFATE 4 MG/ML CPJ (NOT FOR IM USE) IV ONE (04:30)
[2019-08-12] MEDS ORDERED: CEFTRIAXONE 1 G PREMIX 50 ML IV NR (05:00)
[2019-08-12] MEDS ORDERED: MECLIZINE 25MG TABLET PO ONE (06:30)
[2019-08-12 08:25] VITALS: BP 150/84
== END 2019-08-12 08:30 | disposition home or self-care (01) ==
LOC: ER 17:07
DX: N12 Tubulo-interstitial nephritis, not specified as acute or chronic (principal); E11.9 Type 2 diabetes mellitus without complications; I10 Essential (primary) hypertension
CPT/HCPCS: 36415; 71045; 74176; 80053; 81003; 83690; 84484; 85025; 85610; 93005; 96361; 96365; 96375; 96376; 99284; J0696; J2270; J2405; J7030; J8597

== ENCOUNTER 2019-10-22 06:03 | Inpatient (IN) | payer MEDICAID ==
[~2019-10-22] VITALS: Ht 152.4 cm; Wt 63.5 kg
[~2019-10-22 06:03] MED LIST changes: +LEVO500T2 MT
[2019-10-22] MEDS ORDERED: METF-416 MT (06:37)
[2019-10-22] MEDS ORDERED: MORPHINE SULFATE 4 MG/ML CPJ (NOT FOR IM USE) IV ONE (07:00)
[2019-10-22] MEDS ORDERED: ONDANSETRON HCL 4MG/2ML INJ IV ONE (07:00)
[2019-10-22] MEDS ORDERED: ASPIRIN 325MG EC TABLET PO ONE (07:00)
[2019-10-22 07:10] LABS: HEMATOCRIT. 34.4 % (36.0-48.0); HEMOGLOBIN. 10.9 g/dL (12.0-16.0); MEAN CORPUSCULAR HEMOGLOBIN 24.3 pg (28.0-32.0); MEAN CORPUSCULAR VOLUME 76.9 fL (81.0-99.0); MEAN PLATELET VOLUME 8.4 fl (7.4-10.4); PLATELET 272 x1000/uL (130-400); RED BLOOD CELL COUNT 4.47 mill/uL (4.2-5.4); RED CELL DISTRIBUTION WIDTH 13.2 % (11.6-14.6)
[2019-10-22 07:21] LABS: CHLORIDE 106 mEq/L (98-107)
[2019-10-22 07:43] LABS: PLATELET ESTIMATE NORMAL
[2019-10-22] MEDS ORDERED: IPRATROPIUM/ALBUTEROL 0.5-3(2.5)MG/3ML NEB HHN PRN (12:15)
[2019-10-22] MEDS ORDERED: CLONIDINE 0.1MG TABLET PO PRN (12:15)
[2019-10-22] MEDS ORDERED: ONDANSETRON HCL 4MG/2ML INJ IV PRN (12:15)
[2019-10-22] MEDS ORDERED: ACETAMINOPHEN 325MG TABLET PO PRN (12:15)
[2019-10-22 13:07] LABS: PHOSPHORUS 3.9 mg/dL (2.5-4.9)
[2019-10-22 15:30] VITALS: BP_SYST 150; BP_SYST 157; BP_DIAS 84
[2019-10-22] MEDS: ENOXAPARIN 40MG/0.4ML SYR SUBCUT SCH (17:06)
[2019-10-22] MEDS ORDERED: MAGNESIUM 4 G PREMIX 100 ML IV NR (18:00)
[2019-10-22 20:00] VITALS: BP 134/79
[2019-10-22] MEDS: BLOOD SUGAR DIAGNOSTIC STRIP TEST SCH (20:56)
[2019-10-22] MEDS: INSULIN LISPRO 100 UNITS/ML SUBCUT SCH (20:59)
[2019-10-22] MEDS: METOPROLOL TARTRATE 25MG TABLET PO SCH (20:59)
[2019-10-22] MEDS ORDERED: DEXTROSE 50% WATER 50ML SYRINGE IV PRN (21:00)
[2019-10-22 22:03] LABS: CLARITY URINE CLEAR (CLEAR); COLOR URINE YELLOW (YELLOW); KETONES URINE NEGATIVE (NEGATIVE); LEUKOCYTE ESTERASE URINE NEGATIVE (NEGATIVE); NITRITE URINE NEGATIVE (NEGATIVE); OCCULT BLOOD URINE NEGATIVE (NEGATIVE); PH URINE 6.5 (4.5-8.0); PROTEIN URINE 1+ (NEGATIVE); SPECIFIC GRAVITY URINE 1.009 (1.005-1.030); UROBILINOGEN URINE 0.2 E.U./dL (0.2-1.0)
[2019-10-23] VITALS (7 sets, daily range): BP systolic 112–144; BP diastolic 71–92
[2019-10-23] MEDS: BLOOD SUGAR DIAGNOSTIC STRIP TEST SCH ×3 (05:25→17:04)
[2019-10-23] MEDS: INSULIN LISPRO 100 UNITS/ML SUBCUT SCH ×3 (05:41→17:04)
[2019-10-23] MEDS ORDERED: METFORMIN HCL 500MG TABLET PO SCH (08:10)
[2019-10-23] MEDS ORDERED: REGADENOSON 0.4 MG/5 ML IV ONE ×2 (09:00→10:23)
[2019-10-23] MEDS ORDERED: ASPIRIN 81MG TABLET PO SCH (09:00)
[2019-10-23] MEDS ORDERED: AMLODIPINE 5MG TABLET PO SCH (09:00)
[2019-10-23 10:15] LABS: EOSINOPHILS % 4.8 % (0.0-5.0); HEMATOCRIT. 37.8 % (36.0-48.0); HEMOGLOBIN. 11.9 g/dL (12.0-16.0); LYMPHOCYTES % 24.3 % (20.0-50.0); MEAN CORPUSCULAR HEMOGLOBIN 24.3 pg (28.0-32.0); MEAN CORPUSCULAR VOLUME 77.5 fL (81.0-99.0); MEAN PLATELET VOLUME 8.9 fl (7.4-10.4); MONOCYTES % 7.7 % (2.0-8.0); NEUTROPHILS % 62.2 % (40.0-76.0); PLATELET 196 x1000/uL (130-400); RED BLOOD CELL COUNT 4.87 mill/uL (4.2-5.4); RED CELL DISTRIBUTION WIDTH 13.4 % (11.6-14.6)
[2019-10-23 10:38] LABS: CHLORIDE 103 mEq/L (98-107)
[2019-10-23 10:45] LABS: LDL CHOLESTEROL 92 mg/dL (5-100)
[2019-10-23 10:46] LABS: HDL CHOLESTEROL 48 mg/dL (40-59)
[2019-10-23] MEDS: METOPROLOL TARTRATE 25MG TABLET PO SCH (12:02)
[2019-10-23] MEDS: ENOXAPARIN 40MG/0.4ML SYR SUBCUT SCH (16:50)
[2019-10-23] MEDS ORDERED: AMLO5TAB88 PO (19:24)
[2019-10-23] MEDS ORDERED: METO25TA6 PO (19:24)
== END 2019-10-23 21:41 | disposition home or self-care (01) | DRG 203 ==
LOC: ER 06:03 → 7WST 11:31 → EDBEDREQTM 11:35 → ENRESERV 15:05
PROVIDERS: ADMIT Internal Medicine; ATTEND Internal Medicine
DX: M94.0 Chondrocostal junction syndrome [Tietze] (principal); E83.42 Hypomagnesemia; D64.9 Anemia, unspecified; E11.9 Type 2 diabetes mellitus without complications; E78.00 Pure hypercholesterolemia, unspecified; E78.5 Hyperlipidemia, unspecified; R07.9 Chest pain, unspecified; I10 Essential (primary) hypertension
CPT/HCPCS: 36415; 71045; 78452; 80053; 80061; 81003; 82962; 83036; 83735; 83880; 84100; 84443; 84484; 85025; 93005; 93017; 93970; 96374; 96375; 99285; A9500; J1650; J2270; J2405; J2785; J3475

== ENCOUNTER 2020-02-25 12:24 | Emergency (ER) | payer MEDICAID ==
[~2020-02-25] VITALS: Ht 152.4 cm; Wt 68.0 kg
[~2020-02-25 12:24] MED LIST changes: +AMLO5TAB88 PO; -ENAL20TA MT; -LEVO500T2 MT; +METF-416 MT; +METO25TA6 PO
[2020-02-25] MEDS ORDERED: SODIUM CHLORIDE 0.9% 1,000 ML IV ONE (12:47)
[2020-02-25] MEDS ORDERED: KETOROLAC 30MG/ML VIAL IV STA (12:47)
[2020-02-25 13:01] LABS: BASOPHILS % 0.9 % (0.0-2.0); EOSINOPHILS % 2.3 % (0.0-5.0); HEMATOCRIT. 34.2 % (36.0-48.0); HEMOGLOBIN. 10.8 g/dL (12.0-16.0); LYMPHOCYTES % 20.8 % (20.0-50.0); MEAN CORPUSCULAR HEMOGLOBIN 24.1 pg (28.0-32.0); MEAN CORPUSCULAR VOLUME 76.2 fL (81.0-99.0); MEAN PLATELET VOLUME 7.8 fl (7.4-10.4); MONOCYTES % 9.2 % (2.0-8.0); NEUTROPHILS % 66.8 % (40.0-76.0); PLATELET 318 x1000/uL (130-400); RED BLOOD CELL COUNT 4.49 mill/uL (4.2-5.4); RED CELL DISTRIBUTION WIDTH 13.7 % (11.6-14.6)
[2020-02-25 13:12] LABS: INR 0.9
[2020-02-25 13:13] LABS: CHLORIDE 102 mEq/L (98-107)
[2020-02-25] MEDS ORDERED: HYDROCODONE/ACETAMINOPHEN 5/325MG TABLET PO ONE (14:30)
[2020-02-25 14:43] LABS: CLARITY URINE CLEAR (CLEAR); KETONES URINE NEGATIVE (NEGATIVE); LEUKOCYTE ESTERASE URINE NEGATIVE (NEGATIVE); NITRITE URINE NEGATIVE (NEGATIVE); OCCULT BLOOD URINE NEGATIVE (NEGATIVE); PH URINE 7.5 (4.5-8.0); PROTEIN URINE 1+ (NEGATIVE); SPECIFIC GRAVITY URINE 1.008 (1.005-1.030); UROBILINOGEN URINE 0.2 E.U./dL (0.2-1.0)
[2020-02-25 14:44] LABS: COLOR URINE STRAW (YELLOW)
[2020-02-25] MEDS ORDERED: IOHEXOL-300 100 ML BOTTLE ONE (15:55)
[2020-02-25 16:46] VITALS: BP 145/80
[2020-04-24] MEDS ORDERED: METF-416 PO (22:44)
[2020-04-24] MEDS ORDERED: ATOR20TA65 MT (23:19)
[2020-04-26] MEDS ORDERED: LEVO500T2 MT (09:20)
== END 2020-02-25 16:52 | disposition home or self-care (01) ==
LOC: ER 12:53
DX: M54.9 Dorsalgia, unspecified (principal); R51 Headache; E11.9 Type 2 diabetes mellitus without complications; E78.00 Pure hypercholesterolemia, unspecified; I10 Essential (primary) hypertension; Z90.49 Acquired absence of other specified parts of digestive tract; Z90.710 Acquired absence of both cervix and uterus; Z79.899 Other long term (current) drug therapy; Z98.890 Other specified postprocedural states
CPT/HCPCS: 36415; 71045; 74177; 80053; 81003; 83690; 84484; 85025; 85610; 93005; 96374; 99285; J1885; J7030; Q9967

== ENCOUNTER 2021-01-25 11:02 | Inpatient (IN) | payer MEDICAID ==
[~2021-01-25] VITALS: Ht 152.4 cm; Wt 64.9 kg
[~2021-01-25 11:02] MED LIST changes: -ATOR10TA MT; +ATOR20TA65 MT; +LEVO500T2 MT; -METF-416 MT; +METF-416 PO; -METO25TA6 PO
[2021-01-25 12:07] LABS: EOSINOPHILS % 4.1 % (0.0-5.0); HEMATOCRIT. 31.2 % (36.0-48.0); HEMOGLOBIN. 10.2 g/dL (12.0-16.0); MEAN CORPUSCULAR HEMOGLOBIN 24.5 pg (28.0-32.0); MEAN CORPUSCULAR VOLUME 74.5 fL (81.0-99.0); MEAN PLATELET VOLUME 8.2 fl (7.4-10.4); MONOCYTES % 7.4 % (2.0-8.0); NEUTROPHILS % 68.5 % (40.0-76.0); PLATELET 285 x1000/uL (130-400); RED BLOOD CELL COUNT 4.18 mill/uL (4.2-5.4); RED CELL DISTRIBUTION WIDTH 13.4 % (11.6-14.6)
[2021-01-25 12:17] LABS: CHLORIDE 103 mEq/L (98-107)
[2021-01-25 12:18] LABS: INR 0.9; PROTHROMBIN TIME 10.1 sec (9.6-11.0)
[2021-01-25 12:50] LABS: CLARITY URINE CLEAR (CLEAR); COLOR URINE YELLOW (YELLOW); KETONES URINE NEGATIVE (NEGATIVE); LEUKOCYTE ESTERASE URINE NEGATIVE (NEGATIVE); NITRITE URINE NEGATIVE (NEGATIVE); OCCULT BLOOD URINE NEGATIVE (NEGATIVE); PROTEIN URINE 1+ (NEGATIVE); SPECIFIC GRAVITY URINE 1.007 (1.005-1.030); UROBILINOGEN URINE 0.2 E.U./dL (0.2-1.0)
[2021-01-25] MEDS ORDERED: MORPHINE SULFATE 4 MG/ML CPJ (NOT FOR IM USE) IV STA (13:46)
[2021-01-25] MEDS ORDERED: ONDANSETRON HCL 4MG/2ML INJ IV STA (13:46)
[2021-01-25] MEDS ORDERED: KETOROLAC 15MG/ML VIAL IV ONE ×2 (15:00→16:30)
[2021-01-26] VITALS: BP 155/77
[2021-01-26] MEDS ORDERED: ONDANSETRON HCL 4MG/2ML INJ IV PRN (00:15)
[2021-01-26] MEDS ORDERED: ACETAMINOPHEN 650MG/20.3ML UDC PO PRN (00:15)
[2021-01-26] MEDS: SODIUM CHLORIDE 0.9% 1,000 ML IV SCH ×2 (00:37→11:20)
[2021-01-26] MEDS ORDERED: *PATIENT'S OWN MEDICATION STORAGE XX SCH (00:45)
[2021-01-26 02:48] VITALS: BP 155/77
[2021-01-26 04:00] VITALS: BP 147/80
[2021-01-26] MEDS ORDERED: TOPUD PO (05:28)
[2021-01-26] MEDS ORDERED: GABA-529 PO (05:28)
[2021-01-26] MEDS ORDERED: TRAZ-251 PO (05:28)
[2021-01-26 07:02] LABS: BASOPHILS % 1.1 % (0.0-2.0); EOSINOPHILS % 7.3 % (0.0-5.0); HEMATOCRIT. 30.1 % (36.0-48.0); HEMOGLOBIN. 9.8 g/dL (12.0-16.0); LYMPHOCYTES % 21.5 % (20.0-50.0); MEAN CORPUSCULAR HEMOGLOBIN 24.1 pg (28.0-32.0); MEAN CORPUSCULAR VOLUME 73.8 fL (81.0-99.0); MEAN PLATELET VOLUME 8.5 fl (7.4-10.4); MONOCYTES % 9.4 % (2.0-8.0); NEUTROPHILS % 60.7 % (40.0-76.0); PLATELET 330 x1000/uL (130-400); RED BLOOD CELL COUNT 4.07 mill/uL (4.2-5.4); RED CELL DISTRIBUTION WIDTH 13.7 % (11.6-14.6)
[2021-01-26 07:37] LABS: CHLORIDE 105 mEq/L (98-107)
[2021-01-26 08:00] VITALS: BP 121/82
[2021-01-26] MEDS ORDERED: AMLODIPINE 10MG TABLET PO SCH (09:00)
[2021-01-26] MEDS ORDERED: ENOXAPARIN 40MG/0.4ML SYR SUBCUT SCH (09:00)
[2021-01-26] MEDS ORDERED: FAMOTIDINE 20MG TABLET PO SCH (09:00)
[2021-01-26] MEDS ORDERED: DOCUSATE SODIUM 100MG CAPSULE PO SCH (11:15)
[2021-01-26] MEDS ORDERED: ATORVASTATIN CALCIUM 20MG TABLET PO SCH (21:00)
[2021-01-26] MEDS ORDERED: GABAPENTIN 100MG CAPSULE PO SCH (21:00)
[2021-01-26] MEDS ORDERED: TRAZODONE HCL 50MG TABLET PO SCH (21:00)
== END 2021-01-26 14:45 | disposition home or self-care (01) | DRG 254 ==
LOC: ER 11:51 → ENRESERV 19:30 → 6EST 22:07
PROVIDERS: ADMIT Internal Medicine; ATTEND Internal Medicine
DX: K59.00 Constipation, unspecified (principal); N17.0 Acute kidney failure with tubular necrosis; D64.9 Anemia, unspecified; E86.0 Dehydration; E78.00 Pure hypercholesterolemia, unspecified; I10 Essential (primary) hypertension; R73.03 Prediabetes; Z90.49 Acquired absence of other specified parts of digestive tract; Z90.710 Acquired absence of both cervix and uterus; Z79.899 Other long term (current) drug therapy; E78.5 Hyperlipidemia, unspecified; K57.90 Diverticulosis of intestine, part unspecified, without perforation or abscess without bleeding
CPT/HCPCS: 36415; 71045; 74176; 80053; 81003; 85025; 93005; 99285; J1650; J1885; J2270; J2405; J7030; J7040

== ENCOUNTER 2021-03-12 19:50 | Emergency (ER) | payer MEDICAID ==
[~2021-03-12] VITALS: Ht 142.2 cm; Wt 66.9 kg
[~2021-03-12 19:50] MED LIST changes: +GABA-529 PO; -LEVO500T2 MT; +TOPUD PO; +TRAZ-251 PO
[2021-03-12 21:58] LABS: CLARITY URINE CLEAR (CLEAR); COLOR URINE YELLOW (YELLOW); KETONES URINE NEGATIVE (NEGATIVE); LEUKOCYTE ESTERASE URINE TRACE (NEGATIVE); NITRITE URINE NEGATIVE (NEGATIVE); OCCULT BLOOD URINE NEGATIVE (NEGATIVE); PROTEIN URINE 2+ (NEGATIVE); SPECIFIC GRAVITY URINE 1.006 (1.005-1.030); UROBILINOGEN URINE 0.2 E.U./dL (0.2-1.0)
[2021-03-12] MEDS ORDERED: ONDANSETRON HCL 4MG/2ML INJ IV STA (22:43)
[2021-03-12] MEDS ORDERED: SODIUM CHLORIDE 0.9% 1,000 ML IV ONE (22:45)
[2021-03-12] MEDS ORDERED: KETOROLAC 30MG/ML VIAL IV ONE (23:00)
[2021-03-12 23:57] LABS: BASOPHILS % 0.6 % (0.0-2.0); EOSINOPHILS % 1.3 % (0.0-5.0); HEMATOCRIT. 32.3 % (36.0-48.0); HEMOGLOBIN. 10.3 g/dL (12.0-16.0); MEAN CORPUSCULAR HEMOGLOBIN 23.4 pg (28.0-32.0); MEAN CORPUSCULAR VOLUME 73.3 fL (81.0-99.0); MEAN PLATELET VOLUME 8.2 fl (7.4-10.4); MONOCYTES % 5.2 % (2.0-8.0); NEUTROPHILS % 75.9 % (40.0-76.0); PLATELET 376 x1000/uL (130-400); RED CELL DISTRIBUTION WIDTH 13.7 % (11.6-14.6)
[2021-03-13 00:07] LABS: PROTHROMBIN TIME 10.3 sec (9.6-11.0)
[2021-03-13 00:10] LABS: CHLORIDE 100 mEq/L (98-107)
[2021-03-13] MEDS ORDERED: TAMSULOSIN HCL 0.4MG SR CAPSULE PO ONE (02:30)
[2021-03-13] MEDS ORDERED: SODIUM CHLORIDE 0.9% 1,000 ML IV ONE (02:30)
[2021-03-13] MEDS ORDERED: TAMS-11 MT (02:32)
[2021-03-13] MEDS ORDERED: ACET-2708 MT (02:32)
[2021-03-13] MEDS ORDERED: ONDA4TAB5 MT (02:32)
[2021-03-13 05:46] VITALS: BP 132/74
== END 2021-03-13 05:47 | disposition home or self-care (01) ==
LOC: ER 19:50
DX: R10.32 Left lower quadrant pain (principal); N20.0 Calculus of kidney; E11.9 Type 2 diabetes mellitus without complications; E78.00 Pure hypercholesterolemia, unspecified; I10 Essential (primary) hypertension; Z90.49 Acquired absence of other specified parts of digestive tract
CPT/HCPCS: 36415; 74176; 80053; 81003; 83690; 85025; 85610; 96361; 96374; 96375; 99285; J1885; J2405; J7030

== ENCOUNTER 2021-04-26 00:27 | Emergency (ER) | payer MEDICAID ==
[~2021-04-26] VITALS: Ht 152.4 cm; Wt 64.0 kg
[~2021-04-26 00:27] MED LIST changes: +ACET-2708 MT; +ONDA4TAB5 MT; +TAMS-11 MT
[2021-04-26] MEDS ORDERED: KETOROLAC 30MG/ML VIAL IV STA (01:32)
[2021-04-26] MEDS ORDERED: SODIUM CHLORIDE 0.9% 1,000 ML IV ONE (01:45)
[2021-04-26 01:58] LABS: CHLORIDE 98 mEq/L (98-107); EOSINOPHILS % 2.8 % (0.0-5.0); HEMATOCRIT. 33.9 % (36.0-48.0); HEMOGLOBIN. 10.7 g/dL (12.0-16.0); LYMPHOCYTES % 21.9 % (20.0-50.0); MEAN CORPUSCULAR HEMOGLOBIN 23.5 pg (28.0-32.0); MEAN CORPUSCULAR VOLUME 74.5 fL (81.0-99.0); MEAN PLATELET VOLUME 8.1 fl (7.4-10.4); MONOCYTES % 9.3 % (2.0-8.0); PLATELET 376 x1000/uL (130-400); RED BLOOD CELL COUNT 4.56 mill/uL (4.2-5.4); RED CELL DISTRIBUTION WIDTH 14.6 % (11.6-14.6)
[2021-04-26 02:10] LABS: CLARITY URINE CLEAR (CLEAR); COLOR URINE YELLOW (YELLOW); KETONES URINE NEGATIVE (NEGATIVE); LEUKOCYTE ESTERASE URINE TRACE (NEGATIVE); NITRITE URINE NEGATIVE (NEGATIVE); OCCULT BLOOD URINE NEGATIVE (NEGATIVE); PROTEIN URINE 1+ (NEGATIVE); SPECIFIC GRAVITY URINE 1.005 (1.005-1.030); UROBILINOGEN URINE 0.2 E.U./dL (0.2-1.0)
[2021-04-26] MEDS ORDERED: POTASSIUM CHLORIDE 20MEQ TABLET SR PO SCH (02:45)
[2021-04-26] MEDS ORDERED: CEFTRIAXONE 1 G PREMIX 50 ML IV SCH (03:30)
[2021-04-26] MEDS ORDERED: CEPH500C2 MT (05:55)
[2021-04-26] MEDS ORDERED: IBUP-2028 MT (05:55)
[2021-04-26 06:00] VITALS: BP 135/72
== END 2021-04-26 06:08 | disposition home or self-care (01) ==
LOC: ER 01:03
DX: N17.9 Acute kidney failure, unspecified (principal); N10 Acute pyelonephritis; D50.9 Iron deficiency anemia, unspecified; I10 Essential (primary) hypertension; E78.00 Pure hypercholesterolemia, unspecified; R73.03 Prediabetes; Z79.84 Long term (current) use of oral hypoglycemic drugs; Z90.49 Acquired absence of other specified parts of digestive tract
CPT/HCPCS: 36415; 74176; 80053; 81003; 83690; 85025; 96361; 96365; 96375; 99284; J0696; J1885; J7030

== ENCOUNTER 2021-06-02 11:45 | Emergency (ER) | payer MEDICAID ==
[~2021-06-02] VITALS: Ht 147.3 cm; Wt 50.0 kg
[~2021-06-02 11:45] MED LIST changes: +CEPH500C2 MT; +IBUP-2028 MT
[2021-06-02 13:08] VITALS: BP 156/92
[2021-06-02] MEDS ORDERED: ACETAMINOPHEN 325MG TABLET PO STA (13:12)
[2021-06-02 14:31] LABS: CLARITY URINE CLEAR (CLEAR); COLOR URINE YELLOW (YELLOW); KETONES URINE NEGATIVE (NEGATIVE); LEUKOCYTE ESTERASE URINE 1+ (NEGATIVE); NITRITE URINE NEGATIVE (NEGATIVE); OCCULT BLOOD URINE NEGATIVE (NEGATIVE); PROTEIN URINE 2+ (NEGATIVE); SPECIFIC GRAVITY URINE 1.007 (1.005-1.030); UROBILINOGEN URINE 0.2 E.U./dL (0.2-1.0)
[2021-06-02 14:36] LABS: CHLORIDE 104 mEq/L (98-107)
[2021-06-02 14:37] LABS: BASOPHILS % 1.2 % (0.0-2.0); EOSINOPHILS % 2.8 % (0.0-5.0); HEMATOCRIT. 34.6 % (36.0-48.0); HEMOGLOBIN. 10.9 g/dL (12.0-16.0); LYMPHOCYTES % 22.9 % (20.0-50.0); MEAN CORPUSCULAR HEMOGLOBIN 23.5 pg (28.0-32.0); MEAN CORPUSCULAR VOLUME 74.7 fL (81.0-99.0); MEAN PLATELET VOLUME 8.8 fl (7.4-10.4); MONOCYTES % 7.3 % (2.0-8.0); NEUTROPHILS % 65.8 % (40.0-76.0); PLATELET 361 x1000/uL (130-400); RED BLOOD CELL COUNT 4.64 mill/uL (4.2-5.4); RED CELL DISTRIBUTION WIDTH 15.4 % (11.6-14.6)
[2021-06-02 15:25] LABS: INR 0.9
[2021-06-02] MEDS ORDERED: CEFP200T13 MT (15:39)
== END 2021-06-02 15:56 | disposition home or self-care (01) ==
LOC: ER 11:45
DX: N10 Acute pyelonephritis (principal); R10.32 Left lower quadrant pain; E11.9 Type 2 diabetes mellitus without complications; I10 Essential (primary) hypertension; E78.00 Pure hypercholesterolemia, unspecified; Z79.84 Long term (current) use of oral hypoglycemic drugs; Z90.49 Acquired absence of other specified parts of digestive tract
CPT/HCPCS: 36415; 80053; 81003; 85025; 99283

== ENCOUNTER 2022-10-25 16:24 | Emergency (ER) | payer MEDICAID, OTHER ==
[~2022-10-25] VITALS: Ht 152.4 cm; Wt 69.3 kg
[~2022-10-25 16:24] MED LIST changes: +CEFP200T13 MT
[2022-10-25] MEDS ORDERED: METOCLOPRAMIDE HCL 10MG/2ML VIAL IV NR (17:15)
[2022-10-25] MEDS ORDERED: DIPHENHYDRAMINE 50MG/ML VIAL IV NR (17:15)
[2022-10-25] MEDS ORDERED: ACETAMINOPHEN 325MG TABLET PO NR (17:15)
[2022-10-25 21:11] LABS: BASOPHILS % 1.1 % (0.0-2.0); EOSINOPHILS % 2.5 % (0.0-5.0); HEMATOCRIT. 31.3 % (36.0-48.0); LYMPHOCYTES % 26.6 % (20.0-50.0); MEAN CORPUSCULAR HEMOGLOBIN 23.8 pg (28.0-32.0); MEAN CORPUSCULAR VOLUME 74.6 fL (81.0-99.0); MEAN PLATELET VOLUME 8.8 fl (7.4-10.4); MONOCYTES % 9.6 % (2.0-8.0); NEUTROPHILS % 60.2 % (40.0-76.0); PLATELET 385 x1000/uL (130-400); RED BLOOD CELL COUNT 4.19 mill/uL (4.2-5.4); RED CELL DISTRIBUTION WIDTH 14.7 % (11.6-14.6)
[2022-10-25 21:13] LABS: CHLORIDE 105 mEq/L (98-107)
[2022-10-25 21:18] LABS: INR 0.9; PARTIAL THROMBOPLASTIN TIME 26.6 sec (23.4-31.0); PROTHROMBIN TIME 9.9 sec (9.6-11.0)
[2022-10-25 21:27] LABS: ETHANOL BLOOD < 10 mg/dL
[2022-10-25 22:00] VITALS: BP 108/69
[2022-10-25] MEDS ORDERED: METO-293 MT (22:18)
[2022-10-25] MEDS ORDERED: ACET-2708 MT (22:18)
== END 2022-10-25 22:25 | disposition home or self-care (01) ==
LOC: EDBD 16:24 → ER 16:24
DX: R51.9 Headache, unspecified (principal); I10 Essential (primary) hypertension; D64.9 Anemia, unspecified; E11.9 Type 2 diabetes mellitus without complications; E78.00 Pure hypercholesterolemia, unspecified; Z90.49 Acquired absence of other specified parts of digestive tract; Z79.899 Other long term (current) drug therapy
CPT/HCPCS: 36415; 70450; 71045; 80053; 80320; 82962; 83690; 83880; 84484; 85025; 85610; 85730; 86850; 86900; 86901; 93005; 96374; 96375; 99285; J1200; J2765; Z7610; G0480